=== PATIENT | female | born 1965 | race Caucasian/White ===

== ENCOUNTER 2020-09-17 02:11 | Inpatient (IN) ==
[2020-09-17] MEDS ORDERED: ONDANSETRON INJ 2 MG/ML 2 ML VIAL IV PRN (05:13)
[2020-09-17] MEDS ORDERED: ACETAMINOPHEN 325 MG TAB PO PRN (05:13)
[2020-09-17] MEDS ORDERED: GLUCOSE 10 TABS/TUBE PO PRN (05:19)
[2020-09-17] MEDS ORDERED: CARBOHYDRATES FOR HYPOGLYCEMIA PO PRN (05:19)
[2020-09-17] MEDS ORDERED: PHARMACIST DISCHARGE MED REC CONSULT PRN (05:19)
[2020-09-17] MEDS ORDERED: GLUCOSE 40% GEL 15 GM TUBE PO PRN (05:19)
[2020-09-17] MEDS ORDERED: DEXTROSE 50% 50 ML SYRINGE IV PRN (05:19)
[2020-09-17] MEDS ORDERED: GLUCAGON FOR INJ 1 MG VIAL SQ PRN (05:19)
--- NOTE | 2020-09-17 05:35 | History & Physical Report ---
Date of Service September 17, 2020 Assessment & Plan (1) TIA (transient ischemic attack): TIA/confusion- Admit with stroke without TPA protocol order set Accepted in transfer from [facility] emergency department Patient appears to be mildly lethargic upon arrival, but this may be due to a long evening. Upon arrival ordering the following tests: CBC with differential, chemistry profile, magnesium, serial troponins, EKG, urinalysis, and chest x-ray Neuro checks Consult PT/OT/social media analyst/neurology CT head at [facility] was negative CT angiography reportedly was nonconclusive due to timing of dye load. Awaiting morning labs at [facility], in particular when creatinine has returned, and if acceptable at that time, will order MRI brain and MRA head neck, since circulation could not be assessed with clarity at [facility]. If creatinine is elevated, will order MRI brain without contrast, and carotid Dopplers Present on Admission?: Yes (2) Confusion: See above Present on Admission?: Yes (3) Coronary artery disease: CAD/hypertension/history of coronary artery stent- The patient will be admitted to telemetry for serial cardiac enzymes, serial EKG's, cardiac rhythm monitoring and a 2-D echocardiogram with Dopplers. Continue furosemide, hydralazine, isosorbide mononitrate, losartan, metoprolol tartrate and Brilinta Present on Admission?: Yes (4) H/O heart artery stent: See above Present on Admission?: Yes (5) Chronic kidney disease: Creatinine 1.[address] [facility]. She did receive a dye load for CT angiography while there Check a morning set of labs here, and hold any further imaging for now until results are back Consult her cigar packer and sorter Dr. Gerry Hutchins Present on Admission?: Yes (6) Diabetes mellitus type II, controlled: Hold regular insulin until verified and morning sugars are obtained Placed on Accu-Cheks before meals and at bedtime with NovoLog coverage per scale Check hemoglobin A1c Present on Admission?: Yes (7) Hypertension: See above Present on Admission?: Yes (8) Hyperlipidemia: Continue atorvastatin 40 mg daily check a fasting lipid panel Present on Admission?: Yes (9) RLS (restless legs syndrome): Continue ropinirole Present on Admission?: Yes (10) Hypothyroid: Continue levothyroxine Present on Admission?: Yes (11) Obstructive sleep apnea: CPAP at bedtime if needed Present on Admission?: Yes Admission and Anticipated Discharge Date Admission Date: September 17, 2020 History of Present Illness Chief Complaint: The patient presents to [facility] as a transfer and direct admission from [facility] for further evaluation and treatment of TIA and confusion symptoms Primary Care Provider: Duane Gaxiola The patient is a 55-year-old female with a past medical history including CKD, CAD, diabetes mellitus type 2, hyperlipidemia, hypertension, hypothyroidism, nephrolithiasis, obesity, obstructive sleep apnea, restless leg syndrome, anxiety with depression, insomnia, COPD and CHF. She initially presented to the emergency department at [facility] due to confusion, altered mental status and family concerns that she may have taken too much Ambien. At [facility] ED, she underwent CT of head, CTA head and neck which were negative for any significant disease, and due to concerns at that facility, and the inability to do an MRI over the weekend, the patient was transferred to [facility] for further work-up and assessment. Upon arrival to [facility], patient reports that she is feeling a little better, but still appears somewhat lethargic, but may just be fatigued from her long evening. Patient will be admitted to telemetry unit for stroke without TPA protocol order set including the following: CBC with differential, chemistry profile, magnesium, troponin, EKG and chest x-ray. The patient did receive a total of 3 L of normal saline at [facility], due to a creatinine of 1.8 and receiving a dye load via CT imaging to help prevent renal failure. She also received hydralazine 10 mg IV x1. The ED there did consult with [facility] stroke neurology in [place], who recommended a target systolic blood pressure of 200 to 220. Allergies Allergy/AdvReac Type Severity Reaction Status Date / Time cephalexin AdvReac Verified 04/26/20 08:48 doxycycline AdvReac Verified 04/26/20 08:48 latex AdvReac Verified 04/26/20 08:48 sulfamethoxazole AdvReac Verified 04/26/20 08:48 [From Bactrim] trimethoprim [From Bactrim] AdvReac Verified 04/26/20 08:48 Home Medications Medication Instructions Recorded Confirmed Type albuterol sulfate 90 mcg/actuation 2 puffs INH Q6H PRN 08/18/19 04/26/20 History aerosol inhaler atorvastatin 40 mg tablet 40 mg PO DAILY 08/18/19 04/26/20 History duloxetine 30 mg capsule,delayed 30 mg PO DAILY 08/18/19 04/26/20 History release furosemide 40 mg tablet 40 mg PO DAILY 08/18/19 04/26/20 History hydralazine 25 mg tablet 25 mg PO TID 08/18/19 04/26/20 History isosorbide mononitrate 60 mg 60 mg PO DAILY 08/18/19 04/26/20 History tablet,extended release 24 hr levothyroxine 50 mcg capsule 50 mcg PO DAILY 08/18/19 04/26/20 History losartan 100 mg tablet 100 mg PO DAILY 08/18/19 04/26/20 History metoprolol tartrate 100 mg tablet 100 mg PO BID 08/18/19 04/26/20 History ropinirole 0.25 mg tablet 0.25 mg PO DAILY 08/18/19 04/26/20 History ticagrelor 90 mg tablet 90 mg PO BID 08/18/19 04/26/20 History zolpidem 10 mg tablet 10 mg PO .qhs tab 08/18/19 04/26/20 History bupropion HCl 300 mg 24 hr tablet, 300 mg PO DAILY tab 12/15/19 04/26/20 History extended release cetirizine 10 mg tablet 10 mg PO DAILY 12/15/19 04/26/20 History cholecalciferol (vitamin D3) 50 50 mcg PO DAILY #90 cap 12/15/19 04/26/20 Rx mcg (2,000 unit) capsule duloxetine 60 mg capsule,delayed 60 mg PO DAILY 12/15/19 04/26/20 History release lamotrigine 100 mg tablet 100 mg PO DAILY 12/15/19 04/26/20 History lorazepam 1 mg tablet 1 mg PO DAILY 12/15/19 04/26/20 History olanzapine 10 mg tablet 10 mg PO DAILY 12/15/19 04/26/20 History insulin regular hum U-500 conc 95 unit SUBCUT BID ml 04/26/20 04/26/20 History lorazepam 09/17/20 History lorazepam PO DAILY PRN 09/17/20 History ropinirole 0.25 mg PO DAILY 09/17/20 09/17/20 History ticagrelor [Brilinta] mg TID 09/17/20 History Past Med/Surg History Medical History (Updated 09/17/20 @ 06:10 by Yoel Diego MD) Chronic kidney disease Coronary artery disease Diabetes mellitus type II, controlled Hyperlipidemia Hypertension Hypothyroid Nephrolithiasis Obesity Obstructive sleep apnea RLS (restless legs syndrome) Surgical History (Updated 09/17/20 @ 06:10 by Yoel Diego MD) H/O heart artery stent H/O: hysterectomy History of cholecystectomy History of lumpectomy Social History Smoking Status: Never smoker Hx Alcohol Use: No Hx Substance Use: No Preferred Language: Lebanese Communication Ability: Effective Oracle Soa Architect Required: No Beliefs That Will Affect Care: None Current Living Situation: Alone Other Information That Helps Us Care for You: No Feels Safe at Home: Yes Safety Concerns: Feels Safe At This Time Assistive Devices: Denture - Upper, Denture - Lower, Glasses and Walker Review of Systems Review of Systems: The patient denies chest pain, palpitations, shortness of breath, dyspnea on exertion, cough, lower extremity swelling, sore throat, fevers, chills, sweats, nausea, vomiting, diarrhea, constipation, abdominal pain, pelvic pain, blood in urine or stool, dysuria, urinary frequency or urgency, lightheadedness, dizziness, headache, loss of consciousness, rash, abnormal bruising or bleeding, imbalance, focal weakness, numbness or tingling in arms or legs, generalized arthralgias or myalgias, back or neck pain, or night sweats. The review of systems is otherwise negative other than for that already noted above, and at least 10 systems have been reviewed. Physical Exam Physical Exam: The patient is awake, alert and oriented 3, well developed and well nourished, normocephalic and atraumatic, lying in bed and in no acute distress. HEENT--PERRL, EOMI, mucous membranes and oropharynx dry. Neck--supple. No JVD. No bruits. Thyroid normal, trachea midline, no adenopathy. Heart--normal S1 and S2. No murmurs, rubs or gallops. Lungs--clear bilaterally, no respiratory distress, no accessory muscle use. Abdomen--normal bowel sounds and soft. Nontender. Nondistended. Morbidly obese Extremities--no cyanosis or clubbing. No edema. Dermatologic--normal skin turgor, normal color, no abnormal lymph nodes, no rash. Neurologic--cranial nerves II through XII grossly intact. Rheumatologic--normal range of motion. Psychiatric--mildly lethargic. Results & Data Results & Data ([facility]) Vital Signs (Past 12 Hours) Vital Signs Temp Pulse Resp BP Pulse Ox 09/17/20 04:46 98.2 F 116 H 20 176/114 H 95 Code Status & VTE Plan Code Status Full code VTE Prophylaxis Plan VTE Prophylaxis will be ordered: Yes PG Care Time/CCT Total # of Minutes Spent Total Time Spent with Patient: Total time spent is greater than 50% in coordination of care (as documented) at patient's floor/unit and/or counseling patient: Coding Level of Care Code 65974 OBS Care - Level 3 Diagnoses TIA (transient ischemic attack) G45.9 Confusion R41.0 Coronary artery disease I25.10 H/O heart artery stent Z95.5 Chronic kidney disease N18.9 Diabetes mellitus type II, controlled E11.9 Hypertension I10 Hyperlipidemia E78.5 RLS (restless legs syndrome) G25.81 Hypothyroid E03.9 Obstructive sleep apnea G47.33
[2020-09-17 06:17] LABS: Basophils # (auto) 0.03 K/uL (0-0.2); Basophils % (auto) 0.3 %; Eosinophils # (auto) 0.04 K/uL (0-0.5); Eosinophils % (auto) 0.4 %; Hematocrit (blood only) 39.1 % (37-47); Hemoglobin 12.7 g/dL (12.0-16.0); Immature Granulocytes # (auto) 0.02 K/uL (0.00-0.02); Immature Granulocytes % (auto) 0.2 %; Lymphocytes # (auto) 2.03 K/uL (1.2-3.4); Lymphocytes % (auto) 22.5 %; Mean Corpuscular Hemoglobin 29.3 pg (25-34); Mean Corpuscular Volume 90.1 fL (80-100); Monocytes % (auto) 8.9 %; Neutrophils # (auto) 6.09 K/uL (1.4-6.5); Neutrophils % (auto) 67.7 %; Platelet Count 321 K/uL (130-400); RDW Coefficient of Variation 15.3 % (11.5-14.5); RDW Standard Deviation 50.2 fL (36.4-46.3); Red Blood Count 4.34 M/uL (4.2-5.4); White Blood Count 9.01 K/uL (4.8-10.8)
[2020-09-17] MEDS ORDERED: METOPROLOL TARTRATE 1 MG/ML VIAL IV PRN (06:19)
[2020-09-17 06:27] LABS: Partial Thromboplastin Ratio 0.9; Partial Thromboplastin Time 23.4 Seconds (21.0-31.0); Prothrombin Time 10.3 Seconds (9.0-12.0)
[2020-09-17] MEDS: LEVOTHYROXINE SODIUM 50 MCG TABLET PO SCH (06:30)
[2020-09-17] MEDS: HEPARIN SOD 5,000 UNIT/0.5 ML VIAL SQ SCH ×3 (06:30→21:42)
[2020-09-17 06:31] LABS: Mean Corpuscular Hgb Conc 32.5 g/dL (32-36)
[2020-09-17 06:52] LABS: Albumin Level 3.3 gm/dl (3.4-5.0); BUN Creatinine Ratio 12.7 (10-20); Calcium 8.6 mg/dl (8.5-10.1); Creatinine Clr Calc Pharmacy 59.7 ml/min; Est GFR (African American) 48.2 ml/min; Est GFR (Non-African American) 41.6 ml/min
[2020-09-17 07:00] LABS: Bilirubin,Total 0.6 mg/dl (0.2-1); Globulin 3.5 gm/dl (2.5-4.0); Total Protein 6.8 gm/dl (6.4-8.2); Troponin I 0.048 ng/ml (0-0.045)
[2020-09-17] MEDS: ATORVASTATIN 40 MG TAB PO SCH (07:58)
[2020-09-17] MEDS: CETIRIZINE HCL 10 MG TABLET PO SCH (07:58)
[2020-09-17] MEDS: CHOLECALCIFEROL 1,000 UNITS 25 MCG TAB PO SCH (07:58)
[2020-09-17] MEDS: METOPROLOL TARTRATE 100 MG TAB PO SCH ×2 (07:58→20:06)
[2020-09-17] MEDS: DULoxetine HCL 30 MG CAP PO SCH (07:58)
[2020-09-17] MEDS: ASPIRIN 81 MG ECTAB PO SCH (07:58)
[2020-09-17] MEDS: lamoTRIgine 100 MG TAB PO SCH (07:59)
[2020-09-17] MEDS: FUROSEMIDE 40 MG TAB PO SCH (07:59)
[2020-09-17] MEDS: DULoxetine HCL 60 MG CAP PO SCH (07:59)
[2020-09-17] MEDS: ISOSORBIDE MONO EXTENDED REL 60 MG TABCR PO SCH (07:59)
[2020-09-17] MEDS: hydrALAZINE HCL 25 MG TAB PO SCH ×3 (07:59→20:05)
[2020-09-17] MEDS: OLANZapine 10 MG TAB PO SCH (08:00)
[2020-09-17] MEDS: LOSARTAN POTASSIUM 50 MG TAB PO SCH (08:00)
[2020-09-17] MEDS: INSULIN ASPART 100 UNITS/ML 3 ML PEN SC SCH ×4 (08:24→20:06)
--- NOTE | 2020-09-17 08:47 | XRay Report ---
SINGLE VIEW CHEST CLINICAL HISTORY: Change in mental status. Transient ischemic attack. FINDINGS: An AP, portable, upright chest radiograph is obtained. No prior studies are available for c omparison at the time of dictation. The examination is degraded by portable technique and large body habitus. The cardiomediastinal silhouette is unremarkable. The lungs and pleural spaces are clear. No pneumothorax is seen. The bony thorax is grossly intact. IMPRESSION: No active disease in the chest. ACT 112: Negative or not required by law. Electronically signed by: Chucho Guzmán M.D. 09/17/2020 8:45 AM
[2020-09-17 09:17] LABS: Appearance Urine Clear (Clear); Bacteria Urine Automated Negative (Negative); Bilirubin Urine Negative (Negative); Blood Urine Negative (Negative); Color Urine Yellow; Epithelial Cell Urine Auto >30 /lpf (0-5); Glucose Urine UA 3+ (Negative); Ketones Urine 3+ (Negative); Leukocyte Esterase Urine Negative (Negative); Nitrite Urine Negative (Negative); Protein Urine 1+ (Negative); RBC Urine Automated 0-4 /hpf (0-4); Specific Gravity Urine > 1.045 (1.000-1.030); Urobilinogen Urine Negative (Negative)
--- NOTE | 2020-09-17 10:55 | Neurology Consultation ---
Date of Consultation September 17, 2020 Assessment & Plan (1) Acute encephalopathy: (2) RLS (restless legs syndrome): (3) Hypertension: (4) Diabetes mellitus type II, controlled: the patient was transferred early this morning from [facility] emergency room for acute encephalopathy requiring an MRI. the patient actually has fairly good mental status and memory for my interview. Although she feels weak in general had fatigue, she has no focal weakness or other neurologic deficits. She has no meningeal signs and I do not detect a dementia. She has a longstanding psychiatric history on multiple psychiatric medications. There is concern that she took more medication than she should although she claims that she did not (and gets her daily medication in "packets" from the pharmacy ). She has significant hypertension which can give altered mental status and focal neurologic findings. She has a longstanding history of diabetes not adequately controlled. Recommendations: 1. MRI of the brain with without contrast. 2. Watch for withdrawal symptoms. She is somewhat tachycardic but not tremulous or diaphoretic. 3. Hold on EEG for now but may consider depending on clinical course. 4. consider TSH, vitamin-D, B12, Lyme antibody titers, hemoglobin A1c, fasting lipid profile, and ESR 5. Control blood pressure, aiming for a mean arterial pressure approximately 100. 6. control glucose as you are doing Overall, I spent a total of 60 minutes with this case including review of records, direct evaluation the patient at bedside, and discussion of the case with the patient and RN at bedside, and Dr. Yee, including differential diagnosis treatment options. History of Present Illness Reason for Consultation: patient is a 55-year-old, who I was asked to see at the request of Dr. Diego, for neurologic consultation regarding acute altered mental status changes Requesting Physician: Dr. Diego Attending Physician: Shakila Yee MD History of Present Illness this patient has a longstanding history of anxiety depression and claims that she has been on social security disability for years because of her mood. She has been on Brilinta for unknown reasons and there is no history of stroke as far she is aware. She does have diabetes, dyslipidemia, hypertension, obstructive sleep apnea, COPD, CHF, coronary artery disease, CKD, and hypothyroidism. On her current medication list she is on olanzapine 10 mg daily, bupropion 300 mg daily, duloxetine 90 mg daily, Lamictal 100 mg daily, lorazepam as needed and Ambien as needed. She also takes ropinirole for restless leg syndrome. The patient tells me that she lives alone in an apartment near [place] and somehow locked herself out of her apartment and was found wandering naked in the hallways. She recalls this and remembers going to the emergency room at [facility]. CT angiography of the head and neck and CT of the head were unremarkable (I reviewed these reports ). There wanted to get an MRI but transferred her to our institution because they do not have MRI over the weekend. She arrived September 17 at 0446, with a temperature of 36.8, pulse of 116, blood pressure 176/114, respiratory rate 20, and O2 saturation 95%. Her blood pressure has remained elevated. This morning she was in sinus rhythm but tachycardic up to the 130s. Currently she is 179/84 with a pulse of 111 She denies headaches or pain. She is very sleepy it states that she is con fused. she denies any new weakness or numbness. Chest x-ray was unremarkable. CBC and Chem profile were remarkable for a creatinine 1.4 and glucose of 282 Allergies Allergy/AdvReac Type Severity Reaction Status Date / Time cephalexin AdvReac Verified 04/26/20 08:48 doxycycline AdvReac Verified 04/26/20 08:48 latex AdvReac Verified 04/26/20 08:48 sulfamethoxazole AdvReac Verified 04/26/20 08:48 [From Bactrim] trimethoprim [From Bactrim] AdvReac Verified 04/26/20 08:48 Home Medications Medication Instructions Recorded Confirmed Type albuterol sulfate 90 mcg/actuation 2 puffs INH Q6H PRN 08/18/19 04/26/20 History aerosol inhaler atorvastatin 40 mg tablet 40 mg PO DAILY 08/18/19 04/26/20 History duloxetine 30 mg capsule,delayed 30 mg PO DAILY 08/18/19 04/26/20 History release furosemide 40 mg tablet 40 mg PO DAILY 08/18/19 04/26/20 History hydralazine 25 mg tablet 25 mg PO TID 08/18/19 04/26/20 History isosorbide mononitrate 60 mg 60 mg PO DAILY 08/18/19 04/26/20 History tablet,extended release 24 hr levothyroxine 50 mcg capsule 50 mcg PO DAILY 08/18/19 04/26/20 History losartan 100 mg tablet 100 mg PO DAILY 08/18/19 04/26/20 History metoprolol tartrate 100 mg tablet 100 mg PO BID 08/18/19 04/26/20 History ropinirole 0.25 mg tablet 0.25 mg PO DAILY 08/18/19 04/26/20 History ticagrelor 90 mg tablet 90 mg PO BID 08/18/19 04/26/20 History zolpidem 10 mg tablet 10 mg PO .qhs tab 08/18/19 04/26/20 History bupropion HCl 300 mg 24 hr tablet, 300 mg PO DAILY tab 12/15/19 04/26/20 History extended release cetirizine 10 mg tablet 10 mg PO DAILY 12/15/19 04/26/20 History cholecalciferol (vitamin D3) 50 50 mcg PO DAILY #90 cap 12/15/19 04/26/20 Rx mcg (2,000 unit) capsule duloxetine 60 mg capsule,delayed 60 mg PO DAILY 12/15/19 04/26/20 History release lamotrigine 100 mg tablet 100 mg PO DAILY 12/15/19 04/26/20 History lorazepam 1 mg tablet 1 mg PO DAILY 12/15/19 04/26/20 History olanzapine 10 mg tablet 10 mg PO DAILY 12/15/19 04/26/20 History insulin regular hum U-500 conc 95 unit SUBCUT BID ml 04/26/20 04/26/20 History lorazepam 09/17/20 History lorazepam PO DAILY PRN 09/17/20 History ropinirole 0.25 mg PO DAILY 09/17/20 09/17/20 History ticagrelor [Brilinta] mg TID 09/17/20 History Patient History Medical History Chronic kidney disease Coronary artery disease Diabetes mellitus type II, controlled Hyperlipidemia Hypertension Hypothyroid Nephrolithiasis Obesity Obstructive sleep apnea RLS (restless legs syndrome) Surgical History H/O heart artery stent H/O: hysterectomy History of cholecystectomy History of lumpectomy Family History Mother , age 80 of heart disease Heart disease Father , age 81 of diabetic complications Diabetes Social History (Updated 09/17/20 @ 10:48 by Juan F Vallecillo MD) Smoking Status: Former smoker Age Quit Using Tobacco: 38; Number of Years Since Quit: 17; Hx Alcohol Use: No Hx Substance Use: No Preferred Language: Zimbabwean Communication Ability: Effective Customer Project Manager Required: No Beliefs That Will Affect Care: None Current Living Situation: Alone current occupational status: disabled Other Information That Helps Us Care for You: No Feels Safe at Home: Yes Safety Concerns: Feels Safe At This Time Assistive Devices: Glasses and Walker Review of Systems Constitutional: + fatigue; no fever and no weakness Eyes: no diplopia, no eye pain and no worsening vision Ear, Nose, Mouth, Throat: no ear pain, no tinnitus, no hearing loss, no dizziness, no hoarseness and no dysphagia Respiratory: no cough and no dyspnea Cardiovascular: no chest pain, no palpitations and no lightheadedness Gastrointestinal: no abdominal pain, no nausea and no vomiting Genitourinary: no dysuria, no urinary frequency and no urinary incontinence Musculoskeletal: no back pain, no neck pain, no radicular pain, no joint pain and no myalgia Integumentary: no rash and no lesions Neurologic: + confusion; no gait abnormality, no localized weakness, no generalized weakness, no tingling, no numbness, no tremor(s), no abnormal movements, no headache(s), no abnormal speech and no memory loss Psychiatric: + depression and + anxiety; no irritability, no difficulty concentrating, no confusion and no hallucinations Endocrine: no fatigue and no flushing Hematologic / Lymphatic: no easy bleeding and no easy bruising Allergy / Immunological: no urticaria and no problem reported Exam (Neuro) Physical Exam: The patient is right-handed. The patient is sleepy but arousable with voice. She then becomes fairly awake, alert, and attentive. Speech is normal without any aphasia or dysarthria. She can name objects, repeat phrases, and has normal spontaneous speech. Mentation and thought processes are intact, with orientation to person, place and time, and normal fund of knowledge. Attention and concentration are normal. Mood and affect are normal and appropriate. General appearance and grooming are normal. Short and long-term memory seems very reasonable to me to conversation. Pupils are 3 mm bilaterally and reactive to light. Extraocular eye muscles are intact without nystagmus. Visual acuity and visual aldridge seem normal grossly to confrontation. There are no deficits to sensation in the face in all 3 distributions of the fifth cranial nerve bilaterally. Corneal reflexes are positive bilaterally. Facial strength and symmetry was normal bilaterally. Hearing seems normal to whisper and finger rub bilaterally. Palate moves well without asymmetry. There is normal sternocleidomastoid and trapezius (shoulder shrug) strength bilaterally. Tongue is midline with good strength bilaterally. Neck has a full range of motion without discomfort. There are no cervical bruits bilaterally. There are no cranial or ocular bruits. Heart is without murmur. There is a regular rhythm and rate. Cervical, thoracic, and lumbar spine are nontender to palpation. Gait was not tested but stance sitting up in bed is poor With outstretched arms there is no drift. There are no resting, postural, or action tremors. There is no ataxia with finger to nose testing. There is good facility in the hands. No other abnormal involuntary movements are noted. Motor strength is 5/5 diffusely in the arms bilaterally including deltoids, biceps, triceps, brachioradialis, wrist flexors and extensors, senior resident care director, and intrinsic hand muscles. Motor strength is 5/5 diffusely in the legs bilaterally including hip flexors, quadriceps, hamstrings, gastrocnemius, tibialis anterior, tibialis posterior, and Peroneii muscles. Toe extensors are normal and there is good bulk in the extensor digitorum brevis muscles bilaterally. The limbs have good tone without rigidity or spasticity. There is no atrophy noted in the muscles. Muscle bulk is normal, there is no tenderness to palpation, no myotonia to percussion, and no fasciculations seen. Sensory examination is intact to touch and pin throughout the hands and arms but there is some decreased sensation in the feet bilaterally. Reflexes are 1/4 in the biceps, triceps, brachioradialis, quadriceps, and Achilles tendons bilaterally. There is no clonus bilaterally. Toes are downgoing with plantar stimulation bilaterally. Peripheral pulses are present and of normal quality distally in all 4 limbs. There is no peripheral edema noted in the limbs. Results & Data ([facility]) Vital Signs (Past 12 Hours) Vital Signs Temp Pulse Pulse Resp BP Pulse Ox 09/17/20 08:23 111 H 09/17/20 08:16 36.7 C 124 H 20 179/84 H 92 09/17/20 06:09 131 H 09/17/20 04:46 36.8 C 116 H 20 176/114 H 95 PG Care Time/CCT Total # of Minutes Spent Total Time Spent with Patient: Total time spent is greater than 50% in coordinat ion of care (as documented) at patient's floor/unit and/or counseling patient: Coding Level of Care Code 64187 OBS Care - Level 3 Diagnoses Acute encephalopathy G93.40 RLS (restless legs syndrome) G25.81 Hypertension I10 Diabetes mellitus type II, controlled E11.9 Time Spent (min) 60
[2020-09-17] MEDS ORDERED: GADOBUTROL 65ML VIAL IV ONE (13:06)
--- NOTE | 2020-09-17 13:36 | Magnetic Resonance Report ---
MR ANGIOGRAM OF THE NECK COMBO CLINICAL HISTORY: Transient ischemic attack. COMPARISON STUDY: CT angiogram of the neck dated 09/16/2020. TECHNIQUE: Axial 3-D [id number] MR angiography of the neck is performed. Subsequently, following the IV administration of 14.4 cc of Gadavist. Coronal MR angiogram of the neck was performed to aleida borate the findings. 3-D reformats are created and assessed. All measurements were calculated based o n NASCET criteria. FINDINGS: Visualized portions of the thoracic aorta are normal in caliber. The aortic arch demonstrat es standard 3-vessel anatomy. The subclavian arteries are widely patent bilaterally. The right common carotid artery is widely patent, as are the right internal and external carotid arteries. The left c ommon carotid artery is widely patent, as are the left internal and external carotid arteries. The ve rtebral arteries are widely patent. The left vertebral artery is dominant. The visualized intracrania l vessels at the skull base appear patent. IMPRESSION: Unremarkable MR angiogram of the neck ACT 112: Negative or not required by law. Electronically signed by: Chucho Guzmán M.D. 09/17/2020 1:35 PM
--- NOTE | 2020-09-17 13:41 | Magnetic Resonance Report ---
MR ANGIOGRAM OF THE BRAIN CLINICAL HISTORY: Transient ischemic attack. COMPARISON STUDY: MRI of the brain performed concurrently on 09/17/2020. CT angiogram of the brain date d 09/16/2020. TECHNIQUE: 3-D [id number] MR angiography of the intracranial circulation is performed. 3-D tumble views are created and assessed. IV contrast was not administered for this examination. FINDINGS: The internal carotid arteries are widely patent bilaterally, as are the anterior and middle cerebral arteries. The vertebrobasilar system and posterior cerebral arteries are widely patent. The left vertebral artery is dominant. There is no aneurysm, high-grade stenosis, or focal vessel cutof f seen throughout the intracranial circulation. There is mild stenosis of the M1 segment on the left. The brain parenchyma is normal as visualized. IMPRESSION: 1. There is mild stenosis of the M1 segment of the left middle cerebral artery. 2. Otherwise unremarkable MR angiogram of the brain. ACT 112: Negative or not required by law. Electronically signed by: Chucho Guzmán M.D. 09/17/2020 1:31 PM
--- NOTE | 2020-09-17 13:43 | Magnetic Resonance Report ---
MRI OF THE BRAIN COMBO CLINICAL HISTORY: Transient ischemic attack. COMPARISON STUDY: CT angiogram of the brain dated 09/16/2020. TECHNIQUE: MRI of the brain was performed utilizing various T1 and T2-weighted sequences in the axial , sagittal, and coronal planes. Contrast-enhanced sequences were acquired following the administratio n of 14.4 cc of Gadavist. FINDINGS: Brain parenchyma: There is a punctate focus of restricted diffusion identified in the superior left c erebellum on axial image #8. This likely represents a tiny acute to subacute lacunar infarct. No benita tional foci of restricted diffusion are identified. There is no hemorrhage or mass effect. There is m inimal microangiopathic change. No enhancing mass lesion is identified on the postcontrast images. Gr ay-white matter differentiation is preserved. No extra-axial fluid collection is seen. The cerebellar tonsils are normal in configuration. Ventricles, sulci, and cisterns: Normal in configuration. Pituitary and sella: Unremarkable. Intracranial vasculature: Normal flow voids are maintained at the skull base. Orbits: The bony orbits are grossly intact. Orbital contents are normal in appearance. Sinuses and mastoids: Clear. Calvarium: Unremarkable. Cervical cord: Partially visualized cervical spinal cord is normal in morphology and signal intensity . IMPRESSION: 1. There is a punctate focus of restricted diffusion in the left cerebellum, likely representing an a cute to subacute lacunar infarct. 2. No additional foci of acute ischemia are identified. 3. There is no hemorrhage or mass effect. ACT 112: Negative or not required by law. Electronically signed by: Chucho Guzmán M.D. 09/17/2020 1:41 PM
[2020-09-17] MEDS ORDERED: INSULIN GLARGINE SOLOSTAR 100 UNITS/ML 3 ML PEN SC SCH (14:00)
[2020-09-17] MEDS ORDERED: PHARMACY GLYCEMIC MGMT CONSULT PRN (14:14)
[2020-09-17] MEDS ORDERED: INSULIN GLARGINE SOLOSTAR 100 UNITS/ML 3 ML PEN SC ONE ×2 (15:00→15:15)
[2020-09-17] MEDS ORDERED: INSULIN ASPART 100 UNITS/ML 3 ML PEN SC ONE (15:15)
--- NOTE | 2020-09-17 15:20 | Pharmacy Report ---
Pharmacy Glycemic Short Note 2 - Date of Service September 17, 2020 - Glycemic Short BSG Results (Last 24 hours): 09/17/20 09/17/20 09/17/20 06:06 07:27 11:11 Glucose 282 H POC Glucose 276 H 283 H 09/17/20 13:19 Glucose POC Glucose 273 H OUTPATIENT ANTIDIABETIC REGIMEN: * unable to verify current outpatient regimen / Patient reports Truclicity ASSESSMENT: * 55 year old with CKD, DM2, htn, hld, hypothyroidism, obesity. Presenting with confusion, altered mental status. Per notes, concern to have taken too much ambien. Patient workup for possible TIA * Pharmacy consulted for DM management. * Spoke with patient over the phone. She reports not taking any insulin and just taking Trulicity at home once a week on Sundays. States she follows with an mailing machine helper in [place]. Not clear the name. She reports being taken off of insulin ~3 weeks ago and she checks her BSGs 4x a day and BSGs <150. She reports has hypoglycemia at home some times too. She is not sure how much insulin she used to be on or what it was called. During conversation, I feel that patient does not feel confident with answers to questions. She states during the interview that the questions about her insulin are confusing. * BSGs on admission in upper 200s, plan to utilize stress of 2 dosing for now with Lantus/novolog PLAN FOR INPATIENT GLYCEMIC CONTROL: * Hold outpatient oral diabetes medications * Basal insulin * Lantus 50 units x 1 * Bolus insulin * NovoLog per scale ACHS or Q6hrs while NPO * Goal Range: Low 110 mg/dL - High 140 mg/dL * Correction Factor: 15 mg/dL/unit * Nutritional / Prandial insulin per carb ratio of 1 unit per 5 grams CHO consumed PLAN FOR DISCHARGE: * tbd
--- NOTE | 2020-09-17 17:16 | History & Physical Bridge Note ---
Date of Service September 17, 2020 History & Physical Bridge Note I have examined the patient, reviewed the History & Physical and in the interval since the performance of the History & Physical I have noted the following changes of clinical significance: Patient drowsy but wakes up easily. She knows she is in [facility]. She reports that she was brought to the hospital after her neighbors called an EMS as she was wandering around in the halls of her high-rise without pants on. She cannot remember what her primary care doctor's name is and reports that she does not follow with a electronics mechanic. She has no idea of the names of the medications she takes as they come in packets all mixed together. She does know that she takes Trulicity which is started on this about a month ago. She reports about a 25 pound weight gain since that time. She reports that she has not been taking insulin at home. Her blood sugars here have been quite high in the 2-300s. She denies headache or dizziness, denies chest pain. She has chronic shortness of breath but this is unchanged from previous She was eating today and denies any abdominal pains. I discussed her care with the neurologist. Her MRI of the brain was reviewed and did show a punctate left cerebellar CVA which is acute to subacute in nature. MRA of the head and neck are normal. Echocardiogram reviewed which was fairly unremarkable. She was somewhat tachycardic and hypertensive this morning but this is now improved with taking her usual medications. It is unclear if her acute confusion is secondary to her new CVA versus medication side effect. She also reports noncompliance with CPAP -Given acute CVA, started on aspirin, statin -Check Lyme, B12, B1, vitamin D as recommended by cardiology. TSH done and is normal. -Ordered CPAP for tonight if she is willing to try
[2020-09-17 18:05] LABS: Lyme Ab IgG w/WB Rflx Negative (Negative); Lyme Ab IgM w/WB Rflx Negative (Negative)
[2020-09-18] MEDS: INSULIN ASPART 100 UNITS/ML 3 ML PEN SC SCH ×6 (00:17→21:07)
[2020-09-18] MEDS: HEPARIN SOD 5,000 UNIT/0.5 ML VIAL SQ SCH ×3 (05:12→21:20)
[2020-09-18] MEDS: LEVOTHYROXINE SODIUM 50 MCG TABLET PO SCH (05:13)
--- NOTE | 2020-09-18 06:35 | Electrocardiogram Report ---
Test Reason : Blood Pressure : / mmHG Vent. Rate : 108 BPM Atrial Rate : 108 BPM P-R Int : 150 ms QRS Dur : 078 ms QT Int : 366 ms P-R-T Axes : 059 026 054 degrees QTc Int : 490 ms Sinus tachycardia Possible Left atrial enlargement Prolonged QT No previous ECGs available Confirmed by Fede Beyer ([id number]) on 09/18/2020 6:34:34 AM Referred By: Yoel Diego Confirmed By:Fede Beyer
[2020-09-18 07:36] LABS: Basophils # (auto) 0.04 K/uL (0-0.2); Basophils % (auto) 0.4 %; Eosinophils # (auto) 0.34 K/uL (0-0.5); Eosinophils % (auto) 3.6 %; Hematocrit (blood only) 42.6 % (37-47); Hemoglobin 13.4 g/dL (12.0-16.0); Immature Granulocytes # (auto) 0.07 K/uL (0.00-0.02); Immature Granulocytes % (auto) 0.7 %; Lymphocytes # (auto) 2.75 K/uL (1.2-3.4); Lymphocytes % (auto) 29.2 %; Mean Corpuscular Hemoglobin 29.1 pg (25-34); Mean Corpuscular Hgb Conc 31.5 g/dL (32-36); Mean Corpuscular Volume 92.4 fL (80-100); Mean Platelet Volume 10.2 fL (7.4-10.4); Monocytes # (auto) 0.51 K/uL (0.11-0.59); Monocytes % (auto) 5.4 %; Neutrophils # (auto) 5.72 K/uL (1.4-6.5); Neutrophils % (auto) 60.7 %; Platelet Count 318 K/uL (130-400); RDW Coefficient of Variation 15.7 % (11.5-14.5); RDW Standard Deviation 52.5 fL (36.4-46.3); Red Blood Count 4.61 M/uL (4.2-5.4); White Blood Count 9.43 K/uL (4.8-10.8)
[2020-09-18 08:04] LABS: Albumin Level 3.1 gm/dl (3.4-5.0); Calcium 8.6 mg/dl (8.5-10.1); Creatinine Clr Calc Pharmacy 50.2 ml/min; Est GFR (African American) 39.2 ml/min; Est GFR (Non-African American) 33.9 ml/min; Magnesium 2.1 mg/dl (1.8-2.4); Potassium 4.2 mmol/L (3.5-5.1)
[2020-09-18 08:09] LABS: Albumin Globulin Ratio 0.9 (0.9-2); Bilirubin,Total 0.4 mg/dl (0.2-1); Globulin 3.6 gm/dl (2.5-4.0); Total Protein 6.7 gm/dl (6.4-8.2)
[2020-09-18] MEDS: CETIRIZINE HCL 10 MG TABLET PO SCH (08:09)
[2020-09-18] MEDS: LOSARTAN POTASSIUM 50 MG TAB PO SCH (08:09)
[2020-09-18] MEDS: FUROSEMIDE 40 MG TAB PO SCH (08:09)
[2020-09-18] MEDS: OLANZapine 10 MG TAB PO SCH (08:09)
[2020-09-18] MEDS: lamoTRIgine 100 MG TAB PO SCH (08:09)
[2020-09-18] MEDS: CHOLECALCIFEROL 1,000 UNITS 25 MCG TAB PO SCH (08:10)
[2020-09-18] MEDS: ATORVASTATIN 40 MG TAB PO SCH (08:10)
[2020-09-18] MEDS: METOPROLOL TARTRATE 100 MG TAB PO SCH ×2 (08:10→21:19)
[2020-09-18] MEDS: DULoxetine HCL 60 MG CAP PO SCH (08:10)
[2020-09-18] MEDS: DULoxetine HCL 30 MG CAP PO SCH (08:10)
[2020-09-18] MEDS: hydrALAZINE HCL 25 MG TAB PO SCH ×3 (08:10→21:20)
[2020-09-18] MEDS: ISOSORBIDE MONO EXTENDED REL 60 MG TABCR PO SCH (08:10)
[2020-09-18] MEDS: ASPIRIN 81 MG ECTAB PO SCH (08:10)
[2020-09-18] MEDS: INSULIN GLARGINE SOLOSTAR 100 UNITS/ML 3 ML PEN SC SCH (08:11)
[2020-09-18] MEDS: CYANOCOBALAMIN 1000 MCG/ML VIAL IM SCH (10:22)
--- NOTE | 2020-09-18 11:30 | Neurology Progress Note ---
Date of Service September 18, 2020 Assessment & Plan (1) Acute encephalopathy: (2) RLS (restless legs syndrome): (3) Hypertension: (4) Diabetes mellitus type II, controlled: Tthe patient was transferred early in the morning of 7-3 from [place] emergency room for acute encephalopathy requiring an MRI. The patient actually had fairly good mental status and memory for my interview that day. Although she felt weak in general and had fatigue, she had no focal weakness or other neurologic deficits. She had no meningeal signs and I did not detect a dementia. This morning, she is doing much better with her mental status and alertness. Again, there are no focal abnormalities or encephalopathy. MRI of the brain did show a punctate left cerebellar hemispheric acute stroke but there is no clinical accompaniment with this. This is a typical spot for a hypertensive ischemic event She has a longstanding psychiatric history on multiple psychiatric medications. There is concern that she took more medication than she should although she claims that she did not (and gets her daily medication in "packets" from the pharmacy). She has significant hypertension which can give altered mental status and focal neurologic findings. She has a longstanding history of diabetes not adequately controlled. Recommendations: 1. Watch for withdrawal symptoms. she has no withdrawal symptoms or tachycardia 2 . Hold on EEG for now but may consider depending on clinical course. 3. Control blood pressure, aiming for a mean arterial pressure approximately 100. 4. control glucose as you are doing 5. Continue on 81 milligram aspirin tablet daily. Overall, I spent a total of 35 minutes with this case including review of records, review of MRI films, direct evaluation the patient at bedside, and discussion of the case with the patient and RN at bedside, and Dr. Yee, i ncluding differential diagnosis treatment options. Admission and Anticipated Discharge Date Admission Date: September 17, 2020 Subjective Patient feels much better today. She is more awake and alert (less sleepy). She has no complaint of pain or headache. She is not dizzy and she has no new weakness or numbness of the arms or legs. She does not feel clumsy in her limbs or her walking. Her speech is normal she feels. Nursing reports that she is walking fairly well without ataxia. Blood pressure was 160/78 and she is afebrile. MRI of the brain was remarkable for a punctate left cerebellar hemispheric acute infarct. I reviewed these films and there are no other issues. MR angiography of the head revealed some mild stenosis in the left middle cerebral artery M1 segment. MR angiography of the neck was unremarkable with no significant stenoses. Echocardiogram was largely unremarkable CBC was unremarkable. Sed rate was 46. Chem profile was remarkable for creatinine 1.6 and a glucose of 203. B12 was low normal at 329. Results & Data ([facility]) Vital Signs (Past 12 Hours) Vital Signs Temp Pulse Pulse Resp BP Pulse Ox 09/18/20 08:00 86 09/18/20 07:39 37.0 C 80 20 160/78 H 92 09/18/20 03:33 36.7 C 96 H 20 160/83 H 91 09/18/20 00:00 77 09/17/20 23:23 36.7 C 70 20 125/59 L 95 Exam (Neuro) Physical Exam: she is awake and alert, sitting up dangling her legs on the side of the bed. Speech is without aphasia or dysarthria. Mood is appropriate and affect is mildly flat. Extraocular eye muscles are intact without nystagmus and there is no facial droop. Coordination is normal in the arms without tremor or ataxia. Strength is symmetrical in the limbs. PG Care Time/CCT Total # of Minutes Spent Total Time Spent with Patient: Total time spent is greater than 50% in coordination of care (as documented) at patient's floor/unit and/or counseling patient: Coding Level of Care Code 61933 Subseq Hosp Care Lvl 3 Diagnoses Acute encephalopathy G93.40 RLS (restless legs syndrome) G25.81 Hypertension I10 Diabetes mellitus type II, controlled E11.9 Time Spent (min) 35
--- NOTE | 2020-09-18 13:31 | Hospitalist Progress Note ---
Date of Service September 18, 2020 Assessment & Plan (1) CVA (cerebral vascular accident): Presented with confusion after her neighbors called an ambulance after she was found to be walking naked through the hallways of her high-rise She was brought to the [facility] emergency department and she had a CT angiogram of the head and neck and CT head which were unremarkable but she was sent here for further work-up with MRI to rule out stroke She was more lethargic and having confusion in the first 24 hours she was here but this is now improved MRI of the brain did confirm left punctate cerebellar stroke however not sure that this is the cause of her confusion She is on numerous psychiatric medications and may have encephalopathy secondary to medication side effect as below She has no dizziness but does have some mild headache, no real clinical signs of the cerebellar stroke Appreciate neurology consultation-no need for EEG, blood pressure control and glucose control, start aspirin and continue statin. No arrhythmia on telemetry-consider 30-day event monitor after discharge -Start aspirin in addition to her home Brilinta -Continue atorvastatin 80 mg daily -Continue good blood pressure control -Echocardiogram negative -PT/OT report the patient is stable for discharge to home -Control of diabetes as below-severely uncontrolled (2) Acute encephalopathy: Secondary to uncontrolled diabetes, hyperglycemia, numerous sedating m edications Patient is improved today and some of her sedating medications have been held -Watch for benzodiazepine withdrawal as she has not gotten her usual twice daily lorazepam since admission-ordered today for as needed -Continue decrease the polypharmacy-the patient is still unsure of what exactly she takes as she gets her medications and bags from the pharmacy and the pharmacy was closed to the weekend to confirm all of her doses -Improving -May have some baseline psychiatric schizoaffective disorder -Continue to observe -Patient does not wear her CPAP here or at home but ordered for here and she did wear it for 2 hours last night which is also likely contributing to her altered mental status She also takes Ambien at home-this has been discontinued here-there was some concern on the initial H&P but the family thought she had taken too many Ambien -Vitamin B1 level is pending, B12 is normal, check TSH, Lyme disease negative (3) Coronary artery disease: CAD/hypertension/history of coronary artery stent- No chest pain here Echocardiogram without wall motion abnormalities Continue furosemide, hydralazine, isosorbide mononitrate, losartan, metoprolol tartrate and Brilinta (4) H/O heart artery stent: See above (5) Chronic kidney disease: Creatinine 1.8 from labs at [facility]. She did receive a dye load for CT angiography while there Creatinine is at her baseline around 1.4-1.6 here -Avoid nephrotoxins -renally dose meds when appropriate -follow BMP -Check vitamin D level (6) Diabetes mellitus type II, controlled: With significant hyperglycemia here Hemoglobin A1c is still pending over the weekend She reports that she is only taking Trulicity at home for the last month or so and has not taken any of her U5 100 insulin She is requiring very high doses of insulin here and blood sugars remain in the mid 200s -Continue to titrate up on insulin and she will definitely need insulin to go home with simulation educator consultation on Saturday (7) Hypertension: Blood pressures are elevated Continue home meds as above (8) Hyperlipidemia: Continue atorvastatin 80 mg daily Lipid panel checked (9) RLS (restless legs syndrome): Continue ropinirole (10) Hypothyroid: Continue levothyroxine Check TSH in the morning (11) Obstructive sleep apnea: CPAP at bedtime ordered and she wore for 2 hours here last night She reports she does not wear this at home -Encourage CPAP usage (12) B12 deficiency: B12 levels are low normal here Give IM B12 while here and should send out on oral B12 supplement (13) Morbidly obese: BMI significantly elevated 62.2 She needs weight loss (14) DVT prophylaxis: Heparin SQ Disposition-continued stay on telemetry, PT/OT evaluation say that she is okay to go home, it is unclear if she is completely back to her mental baseline and still with significant hyperglycemia here Would benefit from another night stay and diabetic education on Saturday as well Admission and Anticipated Discharge Date Admission Date: September 17, 2020 Subjective Pt feels better today, more alert. Knows where she is and what her pharmacy is but still does not know her medications. I have reached out to our pharmacy to help with the med reconciliation. She denies dizziness but has a mild headache. Denies CP or SOB, no nausea or vomiting. is cristiano po. Is moving her bowels. Was up and moving around with PT and OT today and they recommended she could go home. SHe is agreeable to home health. Glucose still in high 200s but improved from previous. SHe still says that she has not been using insulin at home for "a while" but only using Trulicity. Pt does not feel she would be able to go home today as her daughter is working. Also feel her glucose is not well controlled and her reliability and baseline mental status is still unknown although her MS is improved today from previous Tele with NSR rates 70-80s Review of Systems Review of Systems: All systems reviewed & are unremarkable except as noted in HPI & below Physical Exam Constitutional: WD/WN, vitals as above + morbidly obese Eyes: + anicteric sclerae; no nystagmus Neck: trachea midline, no thyromegaly Respiratory: normal respiratory effort, lungs clear to auscultation Cardiovascular: RRR, no murmur, no edema Chest (Breasts): Chest: normal inspection of chest Gastrointestinal (Abdomen): normal bowel sounds, soft, nontender, no hepatosplenomegaly Musculoskeletal: Extremities: extremities normal to inspection; no cyanosis and no clubbing Skin: no rashes, warm and dry Neurologic: moves all extremities and awake; no focal motor deficits Psychiatric: Orientation: alert, oriented to person, oriented to place and cooperative Affect: + flat affect Insight: + limited insight Lymphatic: no lymphedema Results & Data Results & Data ([facility]) Vital Signs (Past 12 Hours) Vital Signs Temp Pulse Pulse Resp BP Pulse Ox 09/18/20 12:27 36.9 C 75 20 108/66 93 09/18/20 08:00 86 09/18/20 07:39 37.0 C 80 20 160/78 H 92 09/18/20 03:33 36.7 C 96 H 20 160/83 H 91 Laboratory Results 09/18/20 09/18/20 09/18/20 Range/Units 11:34 07:18 07:14 WBC (4.8-10.8) K/uL RBC (4.2-5.4) M/uL Hgb (12.0-16.0) g/dL Hct (37-47) % MCV (80-100) fL MCH (25-34) pg MCHC (32-36) g/dL RDW Std Deviation (36.4-46.3) fL RDW Coeff of Sergio (11.5-14.5) % Plt Count (130-400) K/uL MPV (7.4-10.4) fL Immature Gran % (Auto) % Neut % (Auto) % Lymph % (Auto) % Madison % (Auto) % Eos % (Auto) % Baso % (Auto) % Neut # (Auto) (1.4-6.5) K/uL Lymph # (Auto) (1.2-3.4) K/uL Madison # (Auto) (0.11-0.59) K/uL Eos # (Auto) (0-0.5) K/uL Baso # (Auto) (0-0.2) K/uL Immature Gran # (Auto) (0.00-0.02) K/uL ESR (0-30) mm/hr Sodium (136-145) mmol/L Potassium (3.5-5.1) mmol/L Chloride (98-107) mmol/L Carbon Dioxide (21-32) mmol/L Anion Gap (3-11) BUN (7-18) mg/dl Creatinine (0.6-1.2) mg/dl Est Cr Clr Drug Dosing ml/min Est GFR ( Amer) ml/min Est GFR (Non-Af Amer) ml/min BUN/Creatinine Ratio (10-20) Glucose (70-99) mg/dl POC Glucose 241 H 224 H (70-99) mg/dl Estimat Average Glucose Hemoglobin A1c Calcium (8.5-10.1) mg/dl Magnesium (1.8-2.4) mg/dl Total Bilirubin (0.2-1) mg/dl AST (15-37) U/L ALT (12-78) U/L Alkaline Phosphatase (45-117) U/L Troponin I (0-0.045) ng/ml Total Protein (6.4-8.2) gm/dl Albumin (3.4-5.0) gm/dl Globulin (2.5-4.0) gm/dl Albumin/Globulin Ratio (0.9-2) Triglycerides (0-150) mg/dl Cholesterol (0-200) mg/dl LDL Cholesterol, Calc mg/dl VLDL Cholesterol, Calc mg/dl HDL Cholesterol mg/dl Cholesterol/HDL Ratio Whole Bld Vitamin B1 Pending Vitamin B12 (193-986) pg/ml 25-OH Vitamin D Total Lyme Disease IgG Ab (Negative) Lyme Disease IgM Ab (Negative) 09/18/20 09/18/20 09/18/20 Range/Units 07:14 07:14 07:14 WBC 9.43 (4.8-10.8) K/uL RBC 4.61 (4.2-5.4) M/uL Hgb 13.4 (12.0-16.0) g/dL Hct 42.6 (37-47) % MCV 92.4 (80-100) fL MCH 29.1 (25-34) pg MCHC 31.5 L (32-36) g/dL RDW Std Deviation 52.5 H (36.4-46.3) fL RDW Coeff of Sergio 15.7 H (11.5-14.5) % Plt Count 318 (130-400) K/uL MPV 10.2 (7.4-10.4) fL Immature Gran % (Auto) 0.7 % Neut % (Auto) 60.7 % Lymph % (Auto) 29.2 % Madison % (Auto) 5.4 % Eos % (Auto) 3.6 % Baso % (Auto) 0.4 % Neut # (Auto) 5.72 (1.4-6.5) K/uL Lymph # (Auto) 2.75 (1.2-3.4) K/uL Madison # (Auto) 0.51 (0.11-0.59) K/uL Eos # (Auto) 0.34 (0-0.5) K/uL Baso # (Auto) 0.04 (0-0.2) K/uL Immature Gran # (Auto) 0.07 H (0.00-0.02) K/uL ESR (0-30) mm/hr Sodium 140 (136-145) mmol/L Potassium 4.2 (3.5-5.1) mmol/L Chloride 110 H (98-107) mmol/L Carbon Dioxide 24 (21-32) mmol/L Anion Gap 6.0 (3-11) BUN 18 (7-18) mg/dl Creatinine 1.66 H (0.6-1.2) mg/dl Est Cr Clr Drug Dosing 50.2 ml/min Est GFR ( Amer) 39.2 ml/min Est GFR (Non-Af Amer) 33.9 ml/min BUN/Creatinine Ratio 11.0 (10-20) Glucose 203 H (70-99) mg/dl POC Glucose (70-99) mg/dl Estimat Average Glucose Pending Hemoglobin A1c Pending Calcium 8.6 (8.5-10.1) mg/dl Magnesium 2.1 (1.8-2.4) mg/dl Total Bilirubin 0.4 (0.2-1) mg/dl AST 33 (15-37) U/L ALT 38 (12-78) U/L Alkaline Phosphatase 89 (45-117) U/L Troponin I (0-0.045) ng/ml Total Protein 6.7 (6.4-8.2) gm/dl Albumin 3.1 L (3.4-5.0) gm/dl Globulin 3.6 (2.5-4.0) gm/dl Albumin/Globulin Ratio 0.9 (0.9-2) Triglycerides 140 (0-150) mg/dl Cholesterol 165 (0-200) mg/dl LDL Cholesterol, Calc 89 mg/dl VLDL Cholesterol, Calc 28 mg/dl HDL Cholesterol 48 mg/dl Cholesterol/HDL Ratio 3 Whole Bld Vitamin B1 Vitamin B12 (193-986) pg/ml 25-OH Vitamin D Total Lyme Disease IgG Ab (Negative) Lyme Disease IgM Ab (Negative) 09/18/20 09/17/20 09/17/20 Range/Units 03:41 23:49 21:03 WBC (4.8-10.8) K/uL RBC (4.2-5.4) M/uL Hgb (12.0-16.0) g/dL Hct (37-47) % MCV (80-100) fL MCH (25-34) pg MCHC (32-36) g/dL RDW Std Deviation (36.4-46.3) fL RDW Coeff of Sergio (11.5-14.5) % Plt Count (130-400) K/uL MPV (7.4-10.4) fL Immature Gran % (Auto) % Neut % (Auto) % Lymph % (Auto) % Madison % (Auto) % Eos % (Auto) % Baso % (Auto) % Neut # (Auto) (1.4-6.5) K/uL Lymph # (Auto) (1.2-3.4) K/uL Madison # (Auto) (0.11-0.59) K/uL Eos # (Auto) (0-0.5) K/uL Baso # (Auto) (0-0.2) K/uL Immature Gran # (Auto) (0.00-0.02) K/uL ESR (0-30) mm/hr Sodium (136-145) mmol/L Potassium (3.5-5.1) mmol/L Chloride (98-107) mmol/L Carbon Dioxide (21-32) mmol/L Anion Gap (3-11) BUN (7-18) mg/dl Creatinine (0.6-1.2) mg/dl Est Cr Clr Drug Dosing ml/min Est GFR ( Amer) ml/min Est GFR (Non-Af Amer) ml/min BUN/Creatinine Ratio (10-20) Glucose (70-99) mg/dl POC Glucose 226 H 137 H (70-99) mg/dl Estimat Average Glucose Hemoglobin A1c Calcium (8.5-10.1) mg/dl Magnesium (1.8-2.4) mg/dl Total Bilirubin (0.2-1) mg/dl AST (15-37) U/L ALT (12-78) U/L Alkaline Phosphatase (45-117) U/L Troponin I 0.023 (0-0.045) ng/ml Total Protein (6.4-8.2) gm/dl Albumin (3.4-5.0) gm/dl Globulin (2.5-4.0) gm/dl Albumin/Globulin Ratio (0.9-2) Triglycerides (0-150) mg/dl Cholesterol (0-200) mg/dl LDL Cholesterol, Calc mg/dl VLDL Cholesterol, Calc mg/dl HDL Cholesterol mg/dl Cholesterol/HDL Ratio Whole Bld Vitamin B1 Vitamin B12 (193-986) pg/ml 25-OH Vitamin D Total Lyme Disease IgG Ab (Negative) Lyme Disease IgM Ab (Negative) 09/17/20 09/17/20 09/17/20 Range/Units 19:51 17:04 17:04 WBC (4.8-10.8) K/uL RBC (4.2-5.4) M/uL Hgb (12.0-16.0) g/dL Hct (37-47) % MCV (80-100) fL MCH (25-34) pg MCHC (32-36) g/dL RDW Std Deviation (36.4-46.3) fL RDW Coeff of Sergio (11.5-14.5) % Plt Count (130-400) K/uL MPV (7.4-10.4) fL Immature Gran % (Auto) % Neut % (Auto) % Lymph % (Auto) % Madison % (Auto) % Eos % (Auto) % Baso % (Auto) % Neut # (Auto) (1.4-6.5) K/uL Lymph # (Auto) (1.2-3.4) K/uL Madison # (Auto) (0.11-0.59) K/uL Eos # (Auto) (0-0.5) K/uL Baso # (Auto) (0-0.2) K/uL Immature Gran # (Auto) (0.00-0.02) K/uL ESR (0-30) mm/hr Sodium (136-145) mmol/L Potassium (3.5-5.1) mmol/L Chloride (98-107) mmol/L Carbon Dioxide (21-32) mmol/L Anion Gap (3-11) BUN (7-18) mg/dl Creatinine (0.6-1.2) mg/dl Est Cr Clr Drug Dosing ml/min Est GFR ( Amer) ml/min Est GFR (Non-Af Amer) ml/min BUN/Creatinine Ratio (10-20) Glucose (70-99) mg/dl POC Glucose 144 H (70-99) mg/dl Estimat Average Glucose Hemoglobin A1c Calcium (8.5-10.1) mg/dl Magnesium (1.8-2.4) mg/dl Total Bilirubin (0.2-1) mg/dl AST (15-37) U/L ALT (12-78) U/L Alkaline Phosphatase (45-117) U/L Troponin I (0-0.045) ng/ml Total Protein (6.4-8.2) gm/dl Albumin (3.4-5.0) gm/dl Globulin (2.5-4.0) gm/dl Albumin/Globulin Ratio (0.9-2) Triglycerides (0-150) mg/dl Cholesterol (0-200) mg/dl LDL Cholesterol, Calc mg/dl VLDL Cholesterol, Calc mg/dl HDL Cholesterol mg/dl Cholesterol/HDL Ratio Whole Bld Vitamin B1 Vitamin B12 (193-986) pg/ml 25-OH Vitamin D Total Pending Lyme Disease IgG Ab Negative (Negative) Lyme Disease IgM Ab Negative (Negative) 09/17/20 09/17/20 09/17/20 Range/Units 17:04 17:04 16:21 WBC (4.8-10.8) K/uL RBC (4.2-5.4) M/uL Hgb (12.0-16.0) g/dL Hct (37-47) % MCV (80-100) fL MCH (25-34) pg MCHC (32-36) g/dL RDW Std Deviation (36.4-46.3) fL RDW Coeff of Sergio (11.5-14.5) % Plt Count (130-400) K/uL MPV (7.4-10.4) fL Immature Gran % (Auto) % Neut % (Auto) % Lymph % (Auto) % Madison % (Auto) % Eos % (Auto) % Baso % (Auto) % Neut # (Auto) (1.4-6.5) K/uL Lymph # (Auto) (1.2-3.4) K/uL Madison # (Auto) (0.11-0.59) K/uL Eos # (Auto) (0-0.5) K/uL Baso # (Auto) (0-0.2) K/uL Immature Gran # (Auto) (0.00-0.02) K/uL ESR 46 H (0-30) mm/hr Sodium (136-145) mmol/L Potassium (3.5-5.1) mmol/L Chloride (98-107) mmol/L Carbon Dioxide (21-32) mmol/L Anion Gap (3-11) BUN (7-18) mg/dl Creatinine (0.6-1.2) mg/dl Est Cr Clr Drug Dosing ml/min Est GFR ( Amer) ml/min Est GFR (Non-Af Amer) ml/min BUN/Creatinine Ratio (10-20) Glucose (70-99) mg/dl POC Glucose 300 H (70-99) mg/dl Estimat Average Glucose Hemoglobin A1c Calcium (8.5-10.1) mg/dl Magnesium (1.8-2.4) mg/dl Total Bilirubin (0.2-1) mg/dl AST (15-37) U/L ALT (12-78) U/L Alkaline Phosphatase (45-117) U/L Troponin I (0-0.045) ng/ml Total Protein (6.4-8.2) gm/dl Albumin (3.4-5.0) gm/dl Globulin (2.5-4.0) gm/dl Albumin/Globulin Ratio (0.9-2) Triglycerides (0-150) mg/dl Cholesterol (0-200) mg/dl LDL Cholesterol, Calc mg/dl VLDL Cholesterol, Calc mg/dl HDL Cholesterol mg/dl Cholesterol/HDL Ratio Whole Bld Vitamin B1 Vitamin B12 329 (193-986) pg/ml 25-OH Vitamin D Total Lyme Disease IgG Ab (Negative) Lyme Disease IgM Ab (Negative) 09/17/20 09/17/20 09/17/20 Range/Units 16:19 16:18 14:35 WBC (4.8-10.8) K/uL RBC (4.2-5.4) M/uL Hgb (12.0-16.0) g/dL Hct (37-47) % MCV (80-100) fL MCH (25-34) pg MCHC (32-36) g/dL RDW Std Deviation (36.4-46.3) fL RDW Coeff of Sergio (11.5-14.5) % Plt Count (130-400) K/uL MPV (7.4-10.4) fL Immature Gran % (Auto) % Neut % (Auto) % Lymph % (Auto) % Madison % (Auto) % Eos % (Auto) % Baso % (Auto) % Neut # (Auto) (1.4-6.5) K/uL Lymph # (Auto) (1.2-3.4) K/uL Madison # (Auto) (0.11-0.59) K/uL Eos # (Auto) (0-0.5) K/uL Baso # (Auto) (0-0.2) K/uL Immature Gran # (Auto) (0.00-0.02) K/uL ESR (0-30) mm/hr Sodium (136-145) mmol/L Potassium (3.5-5.1) mmol/L Chloride (98-107) mmol/L Carbon Dioxide (21-32) mmol/L Anion Gap (3-11) BUN (7-18) mg/dl Creatinine (0.6-1.2) mg/dl Est Cr Clr Drug Dosing ml/min Est GFR ( Amer) ml/min Est GFR (Non-Af Amer) ml/min BUN/Creatinine Ratio (10-20) Glucose (70-99) mg/dl POC Glucose 343 H* 306 H* (70-99) mg/dl Estimat Average Glucose Hemoglobin A1c Calcium (8.5-10.1) mg/dl Magnesium (1.8-2.4) mg/dl Total Bilirubin (0.2-1) mg/dl AST (15-37) U/L ALT (12-78) U/L Alkaline Phosphatase (45-117) U/L Troponin I 0.037 (0-0.045) ng/ml Total Protein (6.4-8.2) gm/dl Albumin (3.4-5.0) gm/dl Globulin (2.5-4.0) gm/dl Albumin/Globulin Ratio (0.9-2) Triglycerides (0-150) mg/dl Cholesterol (0-200) mg/dl LDL Cholesterol, Calc mg/dl VLDL Cholesterol, Calc mg/dl HDL Cholesterol mg/dl Cholesterol/HDL Ratio Whole Bld Vitamin B1 Vitamin B12 (193-986) pg/ml 25-OH Vitamin D Total Lyme Disease IgG Ab (Negative) Lyme Disease IgM Ab (Negative) PG Care Time/CCT Total # of Minutes Spent Total Time Spent with Patient: Total time spent is greater than 50% in coordination of care (as documented) at patient's floor/unit and/or counseling patient: Coding Level of Care Code 07639 Subseq Hosp Care Lvl 3 Diagnoses CVA (cerebral vascular accident) I63.9 Acute encephalopathy G93.40 Coronary artery disease I25.10 H/O heart artery stent Z95.5 Chronic kidney disease N18.9 Diabetes mellitus type II, controlled E11.9 Hypertension I10 Hyperlipidemia E78.5 RLS (restless legs syndrome) G25.81 Hypothyroid E03.9 Obstructive sleep apnea G47.33 B12 deficiency E53.8 Morbidly obese E66.01 DVT prophylaxis Z29.9
[2020-09-18] MEDS ORDERED: ALBUTEROL HFA 8 GM INHALER INH PRN (14:33)
[2020-09-18] MEDS ORDERED: rOPINIRole HCL 0.25 MG TABLET PO PRN (14:33)
[2020-09-18] MEDS ORDERED: LORazepam 1 MG TAB PO PRN (14:40)
[2020-09-18] MEDS ORDERED: NYSTATIN POWDER 15GM BTL EXT PRN (15:02)
[2020-09-18] MEDS ORDERED: INSULIN GLARGINE SOLOSTAR 100 UNITS/ML 3 ML PEN SC SCH (21:00)
[2020-09-18] MEDS: TICAGRELOR 90 MG TAB PO SCH (21:19)
[2020-09-19] MEDS: HEPARIN SOD 5,000 UNIT/0.5 ML VIAL SQ SCH (06:18)
[2020-09-19] MEDS: LEVOTHYROXINE SODIUM 50 MCG TABLET PO SCH (06:18)
--- NOTE | 2020-09-19 06:22 | Electrocardiogram Report ---
Test Reason : Blood Pressure : / mmHG Vent. Rate : 080 BPM Atrial Rate : 080 BPM P-R Int : 166 ms QRS Dur : 082 ms QT Int : 420 ms P-R-T Axes : 056 -19 062 degrees QTc Int : 484 ms Normal sinus rhythm Prolonged QT Abnormal ECG When compared with ECG of 17-SEP-2020 06:16, No significant change was found Confirmed by Fede Beyer ([id number]) on 09/19/2020 6:22:07 AM Referred By: Yoel Diego Confirmed By:Fede Beyer
[2020-09-19 06:43] LABS: Basophils # (auto) 0.03 K/uL (0-0.2); Basophils % (auto) 0.3 %; Eosinophils # (auto) 0.56 K/uL (0-0.5); Eosinophils % (auto) 5.5 %; Hematocrit (blood only) 40.7 % (37-47); Hemoglobin 13.1 g/dL (12.0-16.0); Immature Granulocytes # (auto) 0.06 K/uL (0.00-0.02); Immature Granulocytes % (auto) 0.6 %; Lymphocytes # (auto) 3.26 K/uL (1.2-3.4); Lymphocytes % (auto) 32.2 %; Mean Corpuscular Hemoglobin 29.5 pg (25-34); Mean Corpuscular Hgb Conc 32.2 g/dL (32-36); Mean Corpuscular Volume 91.7 fL (80-100); Monocytes # (auto) 0.63 K/uL (0.11-0.59); Monocytes % (auto) 6.2 %; Neutrophils # (auto) 5.58 K/uL (1.4-6.5); Neutrophils % (auto) 55.2 %; Platelet Count 314 K/uL (130-400); RDW Coefficient of Variation 15.5 % (11.5-14.5); Red Blood Count 4.44 M/uL (4.2-5.4); White Blood Count 10.12 K/uL (4.8-10.8)
[2020-09-19 07:20] LABS: Albumin Level 3.2 gm/dl (3.4-5.0); BUN Creatinine Ratio 11.8 (10-20); Calcium 9.1 mg/dl (8.5-10.1); Creatinine Clr Calc Pharmacy 48.9 ml/min; Est GFR (African American) 37.9 ml/min; Est GFR (Non-African American) 32.7 ml/min; Magnesium 2.1 mg/dl (1.8-2.4); Potassium 4.3 mmol/L (3.5-5.1)
[2020-09-19 07:30] LABS: Albumin Globulin Ratio 0.9 (0.9-2); Bilirubin,Total 0.5 mg/dl (0.2-1); Globulin 3.6 gm/dl (2.5-4.0); Thyroid Stimulating Hormone 5.15 uIu/ml (0.300-4.500); Total Protein 6.8 gm/dl (6.4-8.2)
[2020-09-19 07:38] LABS: Estimated Average Glucose 237 mg/dl; Hemoglobin A1C 9.9 % (4.5-5.6)
[2020-09-19] MEDS: INSULIN ASPART 100 UNITS/ML 3 ML PEN SC SCH (08:15)
[2020-09-19] MEDS: INSULIN GLARGINE SOLOSTAR 100 UNITS/ML 3 ML PEN SC SCH (08:16)
[2020-09-19] MEDS: TICAGRELOR 90 MG TAB PO SCH (08:20)
[2020-09-19] MEDS: ISOSORBIDE MONO EXTENDED REL 60 MG TABCR PO SCH (08:20)
[2020-09-19] MEDS: hydrALAZINE HCL 25 MG TAB PO SCH ×2 (08:21→13:28)
[2020-09-19] MEDS: CHOLECALCIFEROL 1,000 UNITS 25 MCG TAB PO SCH (08:21)
[2020-09-19] MEDS: DULoxetine HCL 60 MG CAP PO SCH (08:22)
[2020-09-19] MEDS: METOPROLOL TARTRATE 100 MG TAB PO SCH (08:22)
[2020-09-19] MEDS: LOSARTAN POTASSIUM 50 MG TAB PO SCH (08:23)
[2020-09-19] MEDS: FUROSEMIDE 40 MG TAB PO SCH (08:23)
[2020-09-19] MEDS: lamoTRIgine 100 MG TAB PO SCH (08:23)
[2020-09-19] MEDS: DULoxetine HCL 30 MG CAP PO SCH (08:23)
[2020-09-19] MEDS: CETIRIZINE HCL 10 MG TABLET PO SCH (08:23)
[2020-09-19] MEDS: OLANZapine 10 MG TAB PO SCH (08:23)
[2020-09-19] MEDS: CYANOCOBALAMIN 1000 MCG/ML VIAL IM SCH (08:24)
[2020-09-19] MEDS: ASPIRIN 81 MG ECTAB PO SCH (08:24)
[2020-09-19] MEDS ORDERED: ATORVASTATIN 40 MG TAB PO SCH (09:00)
[2020-09-19] MEDS ORDERED: buPROPion XL 300 MG TABCR PO SCH (09:00)
--- NOTE | 2020-09-19 10:14 | Neurology Progress Note ---
Date of Service September 19, 2020 Assessment & Plan (1) Acute encephalopathy: (2) RLS (restless legs syndrome): (3) Hypertension: (4) Diabetes mellitus type II, controlled: The patient was transferred early in the morning of 7-3 from [place] emergency room for acute encephalopathy, requiring an MRI. The patient actually had fairly good mental status and memory for my interview that day. Although she felt weak in general and had fatigue, she had no focal weakness or other neurologic deficits. She had no meningeal signs and I did not detect a dementia. This morning, she is seemingly back to her baseline with her mental status and alertness. Again, there are no focal abnormalities or encephalopathy. MRI of the brain did show a punctate left cerebellar hemispheric acute stroke but there is no clinical accompaniment with this. This is a typical spot for a hypertensive ischemic event She has a longstanding psychiatric history on multiple psychiatric medications. There is concern that she took more medication than she should although she claims that she did not (and gets her daily medication in "packets" from the pharmacy). She has significant hypertension which can give altered mental status and focal neurologic findings. She has a longstanding history of diabetes move which was not controlled well on admission but much better currently. She has had no withdrawal symptoms the last 48 hours Recommendations: 1. there is no indication for an EEG or other neurologic testing at this time. 2. Control blood pressure, as you are doing, aiming for a mean arterial pressure approximately 100. 3. control glucose as you are doing 4. Continue on 81 milligram aspirin tablet daily. 5. Increase activity as able. 6. I have no further neurologic testing or treatment recommendations to make at this time. Please contact me if I can be of any further assistance on this case. Overall, I spent a total of 35 minutes with this case including review of records, direct evaluation the patient at bedside, and discussion of the case with the patient and RN at bedside, and Dr. Mccarty, including differential diagnosis treatment options. Admission and Anticipated Discharge Date Admission Date: September 18, 2020 Subjective The patient feels much better today even compared to yesterday. She is more alert and at her baseline. Her energy level is better. Hemoglobin A1c was 9.9. Glucose was 146 this morning. CBC was unremarkable. TSH was elevated at 5.1. Blood pressure is 177/85 and she is afebrile. Results & Data ([facility]) Vital Signs (Past 12 Hours) Vital Signs Temp Pulse Pulse Resp BP Pulse Ox 09/19/20 08:35 36.9 C 82 19 177/85 H 95 09/19/20 08:00 73 09/19/20 04:21 36.8 C 74 18 155/81 H 95 09/19/20 01:12 74 09/18/20 23:44 37.1 C 77 18 172/91 H 94 Exam (Neuro) Physical Exam: She is awake and alert. Speech is without aphasia or dysarthria. Mood is normal and affect is appropriate. Thought processes are intact with good long and short-term memory to conversation. Extraocular eye muscles are intact without nystagmus. There is no facial droop. Coordination is normal in the arms without tremor or ataxia. Strength is symmetrical limbs. She is sitting up in the chair well today. PG Care Time/CCT Total # of Minutes Spent Total Time Spent with Patient: Total time spent is greater than 50% in coordination of care (as documented) at patient's floor/unit and/or counseling patient: Coding Level of Care Code 20783 Subseq Hosp Care Lvl 3 Diagnoses Acute encephalopathy G93.40 RLS (restless legs syndrome) G25.81 Hypertension I10 Diabetes mellitus type II, controlled E11.9 Time Spent (min) 35
[2020-09-19] MEDS ORDERED: STROKE PATIENT DISCHARGE STA (12:06)
--- NOTE | 2020-09-19 12:31 | Pharmacy Report ---
Pharmacist Stroke Counseling - Date of Service September 19, 2020 - Scope: Pharmacy has been consulted to provide medication discharge counseling for this patient admitted with transient ischemic attack as per the Pharmacist Discharge Counseling for Stroke Patients Protocol. - Medications on Discharge: Home Medications Medication Instructions Recorded Confirmed albuterol sulfate 90 mcg/actuation 2 puffs INH Q6H PRN 08/18/19 09/18/20 aerosol inhaler atorvastatin 40 mg tablet 80 mg PO DAILY 08/18/19 09/18/20 duloxetine 30 mg capsule,delayed 30 mg PO DAILY 08/18/19 09/18/20 release furosemide 40 mg tablet 40 mg PO DAILY 08/18/19 09/18/20 hydralazine 25 mg tablet 25 mg PO TID 08/18/19 09/18/20 isosorbide mononitrate 60 mg 60 mg PO DAILY 08/18/19 09/18/20 tablet,extended release 24 hr levothyroxine 50 mcg capsule 50 mcg PO DAILY 08/18/19 09/18/20 losartan 100 mg tablet 100 mg PO DAILY 08/18/19 09/18/20 metoprolol tartrate 100 mg tablet 100 mg PO BID 08/18/19 09/18/20 ticagrelor 90 mg tablet 90 mg PO BID 08/18/19 09/18/20 bupropion HCl 300 mg 24 hr tablet, 300 mg PO DAILY tab 12/15/19 09/18/20 extended release cetirizine 10 mg tablet 10 mg PO DAILY 12/15/19 09/18/20 duloxetine 60 mg capsule,delayed 60 mg PO DAILY 12/15/19 09/18/20 release lamotrigine 100 mg tablet 100 mg PO DAILY 12/15/19 09/18/20 olanzapine 10 mg tablet 10 mg PO DAILY 12/15/19 09/18/20 ropinirole 0.25 mg PO DAILY 09/17/20 09/18/20 New Rx's Medication Instructions Recorded cholecalciferol (vitamin D3) 50 50 mcg PO DAILY #90 cap 12/15/19 mcg (2,000 unit) capsule aspirin 81 mg PO QAM #0 tab 09/19/20 - Action: The above medications, specifically ones for stroke treatment/prophylaxis, have been reviewed in detail with the patient prior to discharge. This includes indication, common adverse reactions, drug interactions, and medication administration. Medication counseling has been employed using the teach-back method to ensure understanding. - Outcome: The patient demonstrated understanding of the medications. Additional comments: - Counseling was completed [id number] - Patient has baby aspirin tablets at home and understood to take baby aspirin + Brilinta for 21 days with last day of baby aspirin being 10/07/20 - Teach-back method utilized Thank you for allowing pharmacy to be involved in the care of this patient. Please call [phone] with any additional questions
--- NOTE | 2020-09-19 16:31 | Discharge Summary ---
Date of Service September 19, 2020 Admission HPI Per Admitting Provider The patient is a 55-year-old female with a past medical history including CKD, CAD, diabetes mellitus type 2, hyperlipidemia, hypertension, hypothyroidism, nephrolithiasis, obesity, obstructive sleep apnea, restless leg syndrome, anxiety with depression, insomnia, COPD and CHF. She initially presented to the emergency department at [facility] due to confusion, altered mental status and family concerns that she may have taken too much Ambien. At [facility] ED, she underwent CT of head, CTA head and neck which were negative for any significant disease, and due to concerns at that facility, and the inability to do an MRI over the weekend, the patient was transferred to [facility] for further work-up and assessment. Upon arrival to [facility], patient reports that she is feeling a little better, but still appears somewhat lethargic, but may just be fatigued from her long evening. Patient will be admitted to telemetry unit for stroke without TPA protocol order set including the following: CBC with differential, chemistry profile, magnesium, troponin, EKG and chest x-ray. The patient did receive a total of 3 L of normal saline at [facility], due to a creatinine of 1.8 and receiving a dye load via CT imaging to help prevent renal failure. She also received hydralazine 10 mg IV x1. The ED there did consult with [facility] stroke neurology in [place], who r ecommended a target systolic blood pressure of 200 to 220. Principal Diagnosis Confusion -> Likely due to polypharmacy; however, stroke vs. hyperglycemia also possible. Discharge Exam Constitutional WD/WN, vitals as above Eyes EOM intact bilaterally; no conjunctival abnormality ENMT external ear and nose normal, oropharynx normal Neck trachea midline, no thyromegaly normal visual inspection Respiratory normal respiratory effort, lungs clear to auscultation no respiratory distress Cardiovascular RRR, no murmur, no edema Gastrointestinal (Abdomen) Inspection/Auscultation: abdomen normal to inspection; abdomen not distended Musculoskeletal no cyanosis or clubbing, extremities motor strength 5/5 Skin no rashes, warm and dry Neurologic moves all extremities and awake Psychiatric Orientation: alert, oriented to person and cooperative Discharge Data Allergies Allergy/AdvReac Type Severity Reaction Status Date / Time cephalexin AdvReac Verified 04/26/20 08:48 doxycycline AdvReac Verified 04/26/20 08:48 latex AdvReac Verified 04/26/20 08:48 sulfamethoxazole AdvReac Verified 04/26/20 08:48 [From Bactrim] trimethoprim [From Bactrim] AdvReac Verified 04/26/20 08:48 Consultations 09/17/20 05:19 Consult Neurology Routine Ordered Studies 09/17/20 05:24 MR angio neck wo/w con Routine MR brain wo/w con Routine 09/17/20 05:26 MR angio head wo con Urgent Diabetes Follow up Diabetes Follow-up Needed for HgbA1c >9% Hospital Course (1) CVA (cerebral vascular accident): Presented with confusion after her neighbors called an ambulance after she was found to be walking naked through the hallways of her high-rise She was brought to the [facility] emergency department and she had a CT angiogram of the head and neck and CT head which were unremarkable but she was sent here for further work-up with MRI to rule out stroke She was more lethargic and having confusion in the first 24 hours she was here but this is now improved MRI of the brain did confirm left punctate cerebellar stroke however not sure that this is the cause of her confusion She is on numerous psychiatric medications and may have encephalopathy secondary to medication side effect as below She has no dizziness but does have some mild headache, no real clinical signs of the cerebellar stroke Appreciate neurology consultation-no need for EEG, blood pressure control and glucose control, start aspirin and continue statin. No arrhythmia on telemetry -Start aspirin in addition to her home Brilinta -Continue atorvastatin 80 mg daily -Continue good blood pressure control -Echocardiogram negative -PT/OT report the patient is stable for discharge to home -Control of diabetes as below-severely uncontrolled -> Likely medication induced as she is on Ambien, benzo, and other altering medications. Encouraged her to refrain from using both at the same time and even avoiding both of them. - For her small CVA, continue ASA x 3 weeks, then stop. Continue Brilinta the entire time. (2) Acute encephalopathy: Secondary to uncontrolled diabetes, hyperglycemia, numerous sedating medications Patient is improved today and some of her sedating medications have been held -Watch for benzodiazepine withdrawal as she has not gotten her usual twice daily lorazepam since admission-ordered today for as needed -Continue decrease the polypharmacy-the patient is still unsure of what exactly she takes as she gets her medications and bags from the pharmacy and the pharmacy was closed to the weekend to confirm all of her doses -Improving -May have some baseline psychiatric schizoaffective disorder -Continue to observe -Patient does not wear her CPAP here or at home but ordered for here and she did wear it for 2 hours last night which is also likely contributing to her altered mental status She also takes Ambien at home-this has been discontinued here-there was some concern on the initial H&P but the family thought she had taken too many Ambien -Vitamin B1 level is pending, B12 is normal, check TSH, Lyme disease negative - Back to baseline by discharge. (3) Coronary artery disease: CAD/hypertension/history of coronary artery stent- No chest pain here Echocardiogram without wall motion abnormalities Continue furosemide, hydralazine, isosorbide mononitrate, losartan, metoprolol tartrate and Brilinta (4) H/O heart artery stent: See above (5) Chronic kidney disease: Creatinine 1.8 from labs at [facility]. She did receive a dye load for CT angiography while there Creatinine is at her baseline around 1.4-1.6 here -Avoid nephrotoxins -renally dose meds when appropriate -follow BMP -Check vitamin D level (6) Diabetes mellitus type II, controlled: With significant hyperglycemia here Hemoglobin A1c is still pending over the weekend She reports that she is only taking Trulicity at home for the last month or so and has not taken any of her U5 100 insulin She is requiring very high doses of insulin here and blood sugars remain in the mid 200s -Continue to titrate up on insulin and she will definitely need insulin to go home with ems educator consultation on Saturday (7) Hypertension: Blood pressures are elevated Continue home meds as above (8) Hyperlipidemia: Continue atorvastatin 80 mg daily Lipid panel checked (9) RLS (restless legs syndrome): Continue ropinirole (10) Hypothyroid: Continue levothyroxine Check TSH in the morning (11) Obstructive sleep apnea: CPAP at bedtime ordered and she wore for 2 hours here last night She reports she does not wear this at home -Encourage CPAP usage (12) B12 deficiency: B12 levels are low normal here Give IM B12 while here and should send out on oral B12 supplement (13) Morbidly obese: BMI significantly elevated 62.2 She needs weight loss (14) DVT prophylaxis: Heparin SQ Disposition-continued stay on telemetry, PT/OT evaluation say that she is okay to go home, it is unclear if she is completely back to her mental baseline and still with significant hyperglycemia here Would benefit from another night stay and diabetic education on Saturday as well Total Time Total Time Spent Total Time Spent (In Minutes): 35 Discharge Plan Discharge Items Patient Disposition: Home - Self-Care Reason For Visit: TIA, CONFUSION Discharge Diagnosis: Very tiny stroke Confusion, possibly due to the stroke vs. medication-related vs. high blood sugars Activity: Resume your previous activity Non-emergency contact: Primary Care Provider Call non-emergency contact if: your symptoms worsen Follow-up/Referrals: Duane Gaxiola [Primary Care Provider] - (Please see Dr. Gaxiola this week.) Diet: Carb Consistent or DM2 and Heart Healthy Addtl Attending Provider Instructions: You were admitted to the hospital with confusion. We think this may have been due to either a very tiny stroke or possible due to medication issues. It could also be caused by high blood sugars which you had while in the hospital. While in the hospital, we add a baby aspirin (81 mg) for you to help with stroke protection. You will take this for 3 weeks, then stop. The stop date is October 07. While you are taking your aspirin, please continue to take your Brilinta (take both). Once you stop the aspirin, you will continue the Brilinta. In other words, continue to take your Brilinta as normal. We also held your Ambien and Ativan which can often cause confusion. I would recommend taking these rarely (if january) and *never* together because they can cause troubles with your breathing. Finally, you reported to me that you had been told to stop all insulin by your endocrinology doctor (Dr. Acosta). It seems like your blood sugars are moving in the right direction, so please follow closely with her. Please continue to check your home blood sugars to be sure they are not going too high. Pending Studies at Discharge: No Stand-Alone Forms: Medications to Prevent Stroke, My [facility], Smoking Cessation Medications and DC Order Prescriptions: New aspirin 81 mg Tablet,Delayed Release (Dr/Ec) 81 mg PO QAM Qty: 0 RF: 0 Continued levothyroxine 50 mcg capsule 50 mcg PO DAILY RF: 0 metoprolol tartrate 100 mg tablet 100 mg PO BID RF: 0 furosemide 40 mg tablet 40 mg PO DAILY RF: 0 isosorbide mononitrate 60 mg tablet extended release 24 hr 60 mg PO DAILY RF: 0 atorvastatin [Lipitor] 40 mg tablet 80 mg PO DAILY RF: 0 losartan 100 mg tablet 100 mg PO DAILY RF: 0 albuterol sulfate [Ventolin HFA] 90 mcg/actuation HFA aerosol inhaler 2 puffs INH Q6H PRN (Reason: Shortness Of Breath) RF: 0 duloxetine 30 mg capsule,delayed release(DR/EC) 30 mg PO DAILY RF: 0 Brilinta 90 mg tablet 90 mg PO BID RF: 0 hydralazine 25 mg tablet 25 mg PO TID RF: 0 bupropion HCl 300 mg tablet extended release 24 hr 300 mg PO DAILY RF: 0 duloxetine 60 mg capsule,delayed release(DR/EC) 60 mg PO DAILY RF: 0 lamotrigine 100 mg tablet 100 mg PO DAILY RF: 0 cetirizine 10 mg tablet 10 mg PO DAILY RF: 0 olanzapine 10 mg tablet 10 mg PO DAILY RF: 0 cholecalciferol (vitamin D3) 50 mcg (2,000 unit) capsule 50 mcg PO DAILY Qty: 90 RF: 3 ropinirole 0.5 mg tablet 0.25 mg PO DAILY RF: 0 Discontinued zolpidem 10 mg tablet 10 mg PO .qhs RF: 0 lorazepam 1 mg tablet 1 mg PO BID RF: 0 Humulin R U-500 (Conc) Kwikpen 500 unit/mL (3 mL) insulin pen 95 unit subcut BID RF: 0 Discharge Orders: Discharge Order (Routine); Ordered 09/19/20 Ordered By: Corona Mccarty Admission Data Admit Date/Time: 09/18/20 14:36 Attending Provider: Corona Mccarty Admit Provider: Yoel Diego Primary Care Provider: Duane Gaxiola Other Providers: Tramaine Rivas Other Interventions: Discharge Summary Assessment (RN) Last Done: 09/19/20 12:13 Coding Level of Care Code D/C Day Management >30 mins Diagnoses CVA (cerebral vascular accident) I63.9 Acute encephalopathy G93.40 Coronary artery disease I25.10 H/O heart artery stent Z95.5 Chronic kidney disease N18.9 Diabetes mellitus type II, controlled E11.9 Hypertension I10 Hyperlipidemia E78.5 RLS (restless legs syndrome) G25.81 Hypothyroid E03.9 Obstructive sleep apnea G47.33 B12 deficiency E53.8 Morbidly obese E66.01 DVT prophylaxis Z29.9
--- NOTE | 2020-09-20 05:49 | Electrocardiogram Report ---
Test Reason : Blood Pressure : / mmHG Vent. Rate : 071 BPM Atrial Rate : 071 BPM P-R Int : 166 ms QRS Dur : 084 ms QT Int : 438 ms P-R-T Axes : 055 002 062 degrees QTc Int : 475 ms Normal sinus rhythm Normal ECG When compared with ECG of 18-SEP-2020 05:00, No significant change was found Confirmed by Fede Beyer ([id number]) on 09/20/2020 5:49:26 AM Referred By: Yoel Diego Confirmed By:Fede Beyer
== END 2020-09-19 14:11 | disposition home or self-care (01) | DRG 91 ==
LOC: 2S 04:52 → INTOOBSV 04:52 → SUATTDRO 04:52